=== PATIENT | female | born 1930 | race Caucasian/White ===

== ENCOUNTER 2016-06-27 08:11 | Emergency (ER) | payer MEDICARE, BC, OTHER ==
[2016-06-27] MEDS ORDERED: OPTIRAY 350 100 ML VIAL HMH IV ONE (08:12)
== END 2016-06-27 12:15 | disposition home or self-care (01) ==
LOC: ER 08:11
DX: R10.31 Right lower quadrant pain (principal)
CPT/HCPCS: 36415; 74177; 80053; 81003; 85025; 99284; Q9967

== ENCOUNTER 2016-07-04 01:06 | Inpatient (IN) | payer MEDICARE, BC, OTHER ==
[~2016-07-04] VITALS: Ht 162.6 cm; Wt 52.0 kg
[2016-07-04] VITALS (33 sets, daily range): BP systolic 70–127; RESP 14–42; TEMP 96–100.7; Ht 162.6 cm; Wt 52.0 kg
[2016-07-04] MEDS ORDERED: DUONEB INH ONE ×3 (01:12→01:39)
[2016-07-04] MEDS ORDERED: ACETAMINOPHEN 650 MG SUPP RECTAL ONE (01:27)
[2016-07-04] MEDS ORDERED: SODIUM CHLORIDE 0.9% 100 ML IV ONE (02:08)
[2016-07-04] MEDS ORDERED: CEFTRIAXONE 1 GM VIAL ONE (02:08)
[2016-07-04] MEDS ORDERED: AZITHROMYCIN 500 MG VIAL IV ONE (02:08)
[2016-07-04] MEDS ORDERED: SODIUM CHLORIDE 0.9% 250 ML IV ONE (02:08)
[2016-07-04] MEDS ORDERED: GLUCAGON 1 MG VIAL IM PRN (03:10)
[2016-07-04] MEDS ORDERED: DEXTROSE 50% SYRINGE 50 ML IV PRN (03:10)
[2016-07-04] MEDS ORDERED: MAGNESIUM SULF 1 GM/100 ML 100 ML IV ONE (06:30)
[2016-07-04] MEDS ORDERED: DUONEB INH SCH (07:00)
[2016-07-04] MEDS: NEB-ALBUTEROL 2.5 MG/3 ML INH SCH ×5 (07:02→22:23)
[2016-07-04] MEDS: NEB-BROVANA 15 MCG/2 ML INH SCH ×2 (07:02→18:28)
[2016-07-04] MEDS: ALPRAZOLAM 0.25 MG TAB PO SCH ×3 (08:37→21:53)
[2016-07-04] MEDS: METHYLPRED SOD SUCC 125 MG/2 ML VIAL IV SCH (08:37)
[2016-07-04] MEDS: FAMOTIDINE 20 MG TAB PO SCH ×2 (08:37→21:53)
[2016-07-04] MEDS ORDERED: MISSING DOSE XX ONE (17:20)
[2016-07-04] MEDS ORDERED: NITROGLYCERIN SL 0.4 MG TAB SL SCH (17:40)
[2016-07-04] MEDS ORDERED: SENNA 8.6 MG TAB PO PRN (17:40)
[2016-07-04] MEDS: LEVEMIR INSULIN SUBQ SCH (18:28)
[2016-07-04] MEDS: ASPIRIN EC 325 MG TAB PO SCH (18:28)
[2016-07-04] MEDS: SPIRONOLACTONE 25 MG TAB PO SCH (18:28)
[2016-07-04] MEDS: MONTELUKAST 10 MG TAB PO SCH (18:28)
[2016-07-04] MEDS: Ascorbic Acid 500 MG TAB PO SCH (18:29)
[2016-07-04] MEDS: PRENATAL VITAMIN TAB PO SCH (18:29)
[2016-07-04] MEDS ORDERED: SODIUM CHLORIDE 0.9% 1,000 ML IV SCH ×2 (19:20→20:05)
[2016-07-04] MEDS: FERROUS SULF 325 MG TAB PO SCH (21:53)
[2016-07-04] MEDS: Atorvastatin 20 MG TAB PO SCH (21:53)
[2016-07-04] MEDS: FLUOXETINE 20 MG CAP PO SCH (21:53)
[2016-07-04] MEDS: ATENOLOL 25 MG TAB PO SCH (21:53)
[2016-07-05] VITALS (26 sets, daily range): BP systolic 105–158; RESP 18–41; TEMP 97.2–98.1
[2016-07-05] MEDS: METHYLPRED SOD SUCC 125 MG/2 ML VIAL IV SCH ×5 (02:13→23:59)
[2016-07-05] MEDS: NEB-ALBUTEROL 2.5 MG/3 ML INH SCH ×6 (02:33→23:07)
[2016-07-05] MEDS: SODIUM CHLORIDE 0.9% 1,000 ML IV SCH ×2 (05:04→17:03)
[2016-07-05] MEDS: NEB-BROVANA 15 MCG/2 ML INH SCH ×2 (06:50→18:56)
[2016-07-05] MEDS: SPIRONOLACTONE 25 MG TAB PO SCH (08:35)
[2016-07-05] MEDS: ASPIRIN EC 325 MG TAB PO SCH (08:35)
[2016-07-05] MEDS: PANTOPRAZOLE 40 MG TAB PO SCH (08:35)
[2016-07-05] MEDS: FAMOTIDINE 20 MG TAB PO SCH ×2 (08:35→21:03)
[2016-07-05] MEDS: Furosemide 40 MG TAB PO SCH ×2 (08:35→16:00)
[2016-07-05] MEDS: FERROUS SULF 325 MG TAB PO SCH ×2 (08:35→21:04)
[2016-07-05] MEDS: MONTELUKAST 10 MG TAB PO SCH (08:36)
[2016-07-05] MEDS: ATENOLOL 25 MG TAB PO SCH ×2 (08:36→21:04)
[2016-07-05] MEDS: PRENATAL VITAMIN TAB PO SCH (08:36)
[2016-07-05] MEDS: FLUOXETINE 20 MG CAP PO SCH ×2 (08:36→21:04)
[2016-07-05] MEDS: Ascorbic Acid 500 MG TAB PO SCH (08:36)
[2016-07-05] MEDS: CEFTRIAXONE 1 GM in SODIUM CHLORIDE 0.9% 50 ML IV SCH (08:41)
[2016-07-05] MEDS: LEVEMIR INSULIN SUBQ SCH (08:43)
[2016-07-05] MEDS: ALPRAZOLAM 0.25 MG TAB PO SCH ×3 (08:48→21:04)
[2016-07-05] MEDS: AZITHROMYCIN 500 MG in SODIUM CHLORIDE 0.9% 250 ML IV SCH (09:53)
[2016-07-05] MEDS: Atorvastatin 20 MG TAB PO SCH (21:03)
[2016-07-05] MEDS: ZOLPIDEM 5 MG TAB PO SCH (21:04)
[2016-07-05] MEDS: ACETAMINOPHEN 325 MG TAB PO PRN (23:09)
[2016-07-06] VITALS (45 sets, daily range): BP systolic 114–163; RESP 17–30; TEMP 97.6–98
[2016-07-06] MEDS: PANTOPRAZOLE 40 MG TAB PO SCH (06:25)
[2016-07-06] MEDS: NEB-ALBUTEROL 2.5 MG/3 ML INH SCH ×4 (06:33→23:33)
[2016-07-06] MEDS: NEB-BROVANA 15 MCG/2 ML INH SCH ×2 (06:33→19:30)
[2016-07-06] MEDS: METHYLPRED SOD SUCC 125 MG/2 ML VIAL IV SCH ×3 (07:53→23:30)
[2016-07-06] MEDS: CEFTRIAXONE 1 GM in SODIUM CHLORIDE 0.9% 50 ML IV SCH (07:53)
[2016-07-06] MEDS: FLUOXETINE 20 MG CAP PO SCH ×2 (08:06→20:47)
[2016-07-06] MEDS: FAMOTIDINE 20 MG TAB PO SCH ×2 (08:06→20:47)
[2016-07-06] MEDS: MONTELUKAST 10 MG TAB PO SCH (08:06)
[2016-07-06] MEDS: ALPRAZOLAM 0.25 MG TAB PO SCH ×3 (08:07→20:48)
[2016-07-06] MEDS: ATENOLOL 25 MG TAB PO SCH ×2 (08:07→20:47)
[2016-07-06] MEDS: ASPIRIN EC 325 MG TAB PO SCH (08:07)
[2016-07-06] MEDS: Ascorbic Acid 500 MG TAB PO SCH (08:07)
[2016-07-06] MEDS: SPIRONOLACTONE 25 MG TAB PO SCH (08:08)
[2016-07-06] MEDS: Furosemide 40 MG TAB PO SCH ×2 (08:08→17:13)
[2016-07-06] MEDS: NITROFURANTOIN 50 MG CAP PO SCH (08:08)
[2016-07-06] MEDS: PRENATAL VITAMIN TAB PO SCH (08:08)
[2016-07-06] MEDS: FERROUS SULF 325 MG TAB PO SCH ×2 (08:10→20:48)
[2016-07-06] MEDS: LEVEMIR INSULIN SUBQ SCH (08:17)
[2016-07-06] MEDS: AZITHROMYCIN 500 MG in SODIUM CHLORIDE 0.9% 250 ML IV SCH (08:50)
[2016-07-06] MEDS ORDERED: PHARMACY TO DOSE TOBRAMYCIN IV SCH (13:35)
[2016-07-06] MEDS ORDERED: PHARMACY TO DOSE ZOSYN IV SCH (13:35)
[2016-07-06] MEDS ORDERED: TOBRAMYCIN IV ONE (15:00)
[2016-07-06] MEDS ORDERED: SODIUM CHLORIDE 0.9% IV ONE (15:00)
[2016-07-06] MEDS: PIPERACIL/TAZO 3.375GM/50ML 50 ML IV SCH ×2 (17:18→23:30)
[2016-07-06] MEDS: Atorvastatin 20 MG TAB PO SCH (20:47)
[2016-07-06] MEDS: ZOLPIDEM 5 MG TAB PO SCH (20:48)
[2016-07-07] VITALS (18 sets, daily range): BP systolic 123–155; RESP 14–27; TEMP 96–98.6
[2016-07-07] MEDS: PIPERACIL/TAZO 3.375GM/50ML 50 ML IV SCH ×4 (05:50→23:18)
[2016-07-07] MEDS: NEB-BROVANA 15 MCG/2 ML INH SCH ×2 (06:31→19:53)
[2016-07-07] MEDS: NEB-ALBUTEROL 2.5 MG/3 ML INH SCH ×5 (06:31→23:04)
[2016-07-07] MEDS ORDERED: ZOLPIDEM 5 MG TAB PO SCH (06:35)
[2016-07-07] MEDS: PANTOPRAZOLE 40 MG TAB PO SCH (06:35)
[2016-07-07] MEDS: FLUOXETINE 20 MG CAP PO SCH ×2 (08:13→21:28)
[2016-07-07] MEDS: METHYLPRED SOD SUCC 125 MG/2 ML VIAL IV SCH ×3 (08:13→23:17)
[2016-07-07] MEDS: Ascorbic Acid 500 MG TAB PO SCH (08:14)
[2016-07-07] MEDS: PRENATAL VITAMIN TAB PO SCH (08:14)
[2016-07-07] MEDS: FAMOTIDINE 20 MG TAB PO SCH ×2 (08:14→21:29)
[2016-07-07] MEDS: MONTELUKAST 10 MG TAB PO SCH (08:14)
[2016-07-07] MEDS: ASPIRIN EC 325 MG TAB PO SCH (08:14)
[2016-07-07] MEDS: Furosemide 40 MG TAB PO SCH ×2 (08:14→16:04)
[2016-07-07] MEDS: FERROUS SULF 325 MG TAB PO SCH ×2 (08:14→21:28)
[2016-07-07] MEDS: SPIRONOLACTONE 25 MG TAB PO SCH (08:14)
[2016-07-07] MEDS: ATENOLOL 25 MG TAB PO SCH ×2 (08:14→21:28)
[2016-07-07] MEDS: ALPRAZOLAM 0.25 MG TAB PO SCH ×3 (08:22→21:28)
[2016-07-07] MEDS: LEVEMIR INSULIN SUBQ SCH (08:23)
[2016-07-07] MEDS: DICLOFENAC 1% GEL 100 GM TOPICAL SCH ×3 (12:04→21:29)
[2016-07-07] MEDS ORDERED: MISSING DOSE XX ONE (16:40)
[2016-07-07] MEDS: Atorvastatin 20 MG TAB PO SCH (21:28)
[2016-07-07] MEDS: ZOLPIDEM 5 MG TAB PO SCH (21:29)
[2016-07-08] MEDS ORDERED: TOBRAMYCIN IV SCH (03:00)
[2016-07-08] MEDS ORDERED: SODIUM CHLORIDE 0.9% IV SCH (03:00)
[2016-07-08] MEDS: PIPERACIL/TAZO 3.375GM/50ML 50 ML IV SCH ×3 (06:15→18:03)
[2016-07-08] MEDS: PANTOPRAZOLE 40 MG TAB PO SCH (06:16)
[2016-07-08] MEDS: NEB-BROVANA 15 MCG/2 ML INH SCH ×2 (07:35→19:01)
[2016-07-08] MEDS: NEB-ALBUTEROL 2.5 MG/3 ML INH SCH ×5 (07:35→23:27)
[2016-07-08 08:37] VITALS: BP_SYST 157; RESP 18; TEMP 98.1
[2016-07-08] MEDS: MONTELUKAST 10 MG TAB PO SCH (09:59)
[2016-07-08] MEDS: ATENOLOL 25 MG TAB PO SCH ×2 (09:59→20:30)
[2016-07-08] MEDS: SPIRONOLACTONE 25 MG TAB PO SCH (09:59)
[2016-07-08] MEDS: ASPIRIN EC 325 MG TAB PO SCH (09:59)
[2016-07-08] MEDS: NITROFURANTOIN 50 MG CAP PO SCH (09:59)
[2016-07-08] MEDS: Ascorbic Acid 500 MG TAB PO SCH (10:00)
[2016-07-08] MEDS: FERROUS SULF 325 MG TAB PO SCH ×2 (10:00→20:30)
[2016-07-08] MEDS: FLUOXETINE 20 MG CAP PO SCH ×2 (10:00→20:29)
[2016-07-08] MEDS: PRENATAL VITAMIN TAB PO SCH (10:00)
[2016-07-08] MEDS: FAMOTIDINE 20 MG TAB PO SCH ×2 (10:00→20:29)
[2016-07-08] MEDS: ALPRAZOLAM 0.25 MG TAB PO SCH ×3 (10:00→20:29)
[2016-07-08] MEDS: LEVEMIR INSULIN SUBQ SCH (10:01)
[2016-07-08] MEDS: Furosemide 40 MG TAB PO SCH ×2 (10:01→17:56)
[2016-07-08] MEDS: METHYLPRED SOD SUCC 125 MG/2 ML VIAL IV SCH ×2 (10:02→17:53)
[2016-07-08] MEDS ORDERED: MISSING DOSE XX ONE (11:30)
[2016-07-08 11:41] VITALS: BP_SYST 155; RESP 18; TEMP 98.5
[2016-07-08] MEDS: DICLOFENAC 1% GEL 100 GM TOPICAL SCH ×3 (12:27→20:30)
[2016-07-08 15:33] VITALS: BP_SYST 134; RESP 20; TEMP 97.6
[2016-07-08] MEDS: SODIUM CHLORIDE 0.9% 1,000 ML IV SCH (15:33)
[2016-07-08 19:16] VITALS: BP_SYST 124; TEMP 98.2
[2016-07-08] MEDS: Atorvastatin 20 MG TAB PO SCH (20:29)
[2016-07-08] MEDS: ZOLPIDEM 5 MG TAB PO SCH (20:30)
[2016-07-08 23:33] VITALS: BP_SYST 152; RESP 18; TEMP 98.1
[2016-07-09] MEDS: PIPERACIL/TAZO 3.375GM/50ML 50 ML IV SCH ×5 (00:01→23:16)
[2016-07-09] MEDS: METHYLPRED SOD SUCC 125 MG/2 ML VIAL IV SCH ×4 (00:01→23:17)
[2016-07-09 05:48] VITALS: BP_SYST 149; RESP 18; TEMP 98.2
[2016-07-09] MEDS: PANTOPRAZOLE 40 MG TAB PO SCH (05:48)
[2016-07-09] MEDS: SODIUM CHLORIDE 0.9% 1,000 ML IV SCH (06:08)
[2016-07-09] MEDS ORDERED: KCL CR 20 MEQ TAB PO ONE (06:35)
[2016-07-09] MEDS: NEB-BROVANA 15 MCG/2 ML INH SCH ×2 (06:48→19:37)
[2016-07-09] MEDS: NEB-ALBUTEROL 2.5 MG/3 ML INH SCH ×5 (06:48→23:14)
[2016-07-09 07:42] VITALS: BP_SYST 142; RESP 18; TEMP 98.2
[2016-07-09] MEDS: LEVEMIR INSULIN SUBQ SCH (08:57)
[2016-07-09] MEDS: ALPRAZOLAM 0.25 MG TAB PO SCH ×3 (09:00→20:02)
[2016-07-09] MEDS: ATENOLOL 25 MG TAB PO SCH ×2 (09:47→20:02)
[2016-07-09] MEDS: ASPIRIN EC 325 MG TAB PO SCH (09:47)
[2016-07-09] MEDS: MONTELUKAST 10 MG TAB PO SCH (09:49)
[2016-07-09] MEDS: Ascorbic Acid 500 MG TAB PO SCH (09:49)
[2016-07-09] MEDS: PRENATAL VITAMIN TAB PO SCH (09:49)
[2016-07-09] MEDS: FLUOXETINE 20 MG CAP PO SCH ×2 (09:49→20:02)
[2016-07-09] MEDS: Furosemide 40 MG TAB PO SCH ×2 (09:49→17:27)
[2016-07-09] MEDS: SPIRONOLACTONE 25 MG TAB PO SCH (09:49)
[2016-07-09] MEDS: FAMOTIDINE 20 MG TAB PO SCH ×2 (09:50→20:01)
[2016-07-09] MEDS: DICLOFENAC 1% GEL 100 GM TOPICAL SCH ×3 (09:50→20:02)
[2016-07-09] MEDS: FERROUS SULF 325 MG TAB PO SCH ×2 (09:50→20:02)
[2016-07-09 11:49] VITALS: BP_SYST 124; RESP 18; TEMP 98
[2016-07-09 15:33] VITALS: BP_SYST 107; RESP 18; TEMP 97.7
[2016-07-09] MEDS ORDERED: TOBRAMYCIN IV ONE (15:35)
[2016-07-09] MEDS ORDERED: SODIUM CHLORIDE 0.9% IV ONE (15:35)
[2016-07-09 19:05] VITALS: BP_SYST 117; RESP 18; TEMP 98
[2016-07-09] MEDS: ZOLPIDEM 5 MG TAB PO SCH (20:01)
[2016-07-09] MEDS: Atorvastatin 20 MG TAB PO SCH (20:01)
[2016-07-09 23:07] VITALS: BP_SYST 140; RESP 18; TEMP 98.1
[2016-07-10 04:16] VITALS: BP_SYST 121; RESP 16; TEMP 98.5
[2016-07-10] MEDS: PANTOPRAZOLE 40 MG TAB PO SCH (05:14)
[2016-07-10] MEDS: SODIUM CHLORIDE 0.9% 1,000 ML IV SCH (05:14)
[2016-07-10] MEDS: PIPERACIL/TAZO 3.375GM/50ML 50 ML IV SCH ×4 (05:14→23:44)
[2016-07-10 07:18] VITALS: BP_SYST 149; RESP 18; TEMP 97.7
[2016-07-10] MEDS ORDERED: MISSING DOSE XX ONE ×2 (07:45→08:10)
[2016-07-10] MEDS: NEB-BROVANA 15 MCG/2 ML INH SCH ×2 (07:52→19:00)
[2016-07-10] MEDS: NEB-ALBUTEROL 2.5 MG/3 ML INH SCH ×5 (07:52→22:55)
[2016-07-10] MEDS ORDERED: TOBRAMYCIN IV SCH (08:00)
[2016-07-10] MEDS ORDERED: SODIUM CHLORIDE 0.9% IV SCH (08:00)
[2016-07-10] MEDS: PRENATAL VITAMIN TAB PO SCH (08:49)
[2016-07-10] MEDS: Furosemide 40 MG TAB PO SCH ×2 (08:50→16:15)
[2016-07-10] MEDS: MONTELUKAST 10 MG TAB PO SCH (08:50)
[2016-07-10] MEDS: ATENOLOL 25 MG TAB PO SCH ×2 (08:50→21:18)
[2016-07-10] MEDS: FAMOTIDINE 20 MG TAB PO SCH ×2 (08:50→21:19)
[2016-07-10] MEDS: Ascorbic Acid 500 MG TAB PO SCH (08:50)
[2016-07-10] MEDS: FLUOXETINE 20 MG CAP PO SCH ×2 (08:51→21:19)
[2016-07-10] MEDS: SPIRONOLACTONE 25 MG TAB PO SCH (08:51)
[2016-07-10] MEDS: NITROFURANTOIN 50 MG CAP PO SCH (08:51)
[2016-07-10] MEDS: ASPIRIN EC 325 MG TAB PO SCH (08:51)
[2016-07-10] MEDS: FERROUS SULF 325 MG TAB PO SCH ×2 (08:51→21:18)
[2016-07-10] MEDS: LEVEMIR INSULIN SUBQ SCH (08:52)
[2016-07-10] MEDS: DICLOFENAC 1% GEL 100 GM TOPICAL SCH ×4 (09:00→21:00)
[2016-07-10] MEDS: ALPRAZOLAM 0.25 MG TAB PO SCH ×3 (09:40→21:00)
[2016-07-10] MEDS: METHYLPRED SOD SUCC 40 MG VIAL IV SCH ×3 (09:41→23:44)
[2016-07-10 11:07] VITALS: BP_SYST 143; RESP 20; TEMP 97.8
[2016-07-10 15:42] VITALS: BP_SYST 125; RESP 18; TEMP 97.9
[2016-07-10 19:26] VITALS: BP_SYST 136; RESP 18
[2016-07-10] MEDS: TEMAZEPAM 7.5 MG CAP PO SCH (21:00)
[2016-07-10] MEDS: Atorvastatin 20 MG TAB PO SCH (21:19)
[2016-07-11 04:27] VITALS: BP_SYST 153; RESP 18; TEMP 98
[2016-07-11] MEDS: PANTOPRAZOLE 40 MG TAB PO SCH (05:53)
[2016-07-11] MEDS: PIPERACIL/TAZO 3.375GM/50ML 50 ML IV SCH (05:54)
[2016-07-11] MEDS: NEB-BROVANA 15 MCG/2 ML INH SCH ×2 (06:58→18:32)
[2016-07-11] MEDS: NEB-ALBUTEROL 2.5 MG/3 ML INH SCH ×5 (06:58→22:26)
[2016-07-11 07:53] VITALS: BP_SYST 144; RESP 20; TEMP 97.8
[2016-07-11] MEDS: FAMOTIDINE 20 MG TAB PO SCH ×2 (09:11→21:25)
[2016-07-11] MEDS: METHYLPRED SOD SUCC 40 MG VIAL IV SCH ×2 (09:11→16:06)
[2016-07-11] MEDS: LEVEMIR INSULIN SUBQ SCH (09:11)
[2016-07-11] MEDS: FLUOXETINE 20 MG CAP PO SCH ×2 (09:12→21:24)
[2016-07-11] MEDS: ALPRAZOLAM 0.25 MG TAB PO SCH ×3 (09:12→21:24)
[2016-07-11] MEDS: SPIRONOLACTONE 25 MG TAB PO SCH (09:12)
[2016-07-11] MEDS: ATENOLOL 25 MG TAB PO SCH ×2 (09:12→21:25)
[2016-07-11] MEDS: Ascorbic Acid 500 MG TAB PO SCH (09:12)
[2016-07-11] MEDS: Furosemide 40 MG TAB PO SCH ×2 (09:12→16:06)
[2016-07-11] MEDS: MONTELUKAST 10 MG TAB PO SCH (09:12)
[2016-07-11] MEDS: FERROUS SULF 325 MG TAB PO SCH ×2 (09:12→21:25)
[2016-07-11] MEDS: PRENATAL VITAMIN TAB PO SCH (09:12)
[2016-07-11] MEDS: ASPIRIN EC 325 MG TAB PO SCH (09:12)
[2016-07-11] MEDS: DICLOFENAC 1% GEL 100 GM TOPICAL SCH ×3 (09:13→21:26)
[2016-07-11] MEDS ORDERED: MISSING DOSE XX ONE ×2 (12:30→21:00)
[2016-07-11] MEDS: PIPERACIL/TAZO 2.25GM/50ML 50 ML IV SCH ×2 (13:36→18:22)
[2016-07-11 14:57] VITALS: BP_SYST 152; RESP 20; TEMP 97.7
[2016-07-11 19:15] VITALS: BP_SYST 150; RESP 18; TEMP 97.4
[2016-07-11] MEDS: Atorvastatin 20 MG TAB PO SCH (21:24)
[2016-07-11] MEDS: TEMAZEPAM 7.5 MG CAP PO SCH (21:25)
[2016-07-12] MEDS: SODIUM CHLORIDE 0.9% 1,000 ML IV SCH (00:07)
[2016-07-12] MEDS: METHYLPRED SOD SUCC 40 MG VIAL IV SCH ×4 (00:08→23:39)
[2016-07-12] MEDS: PIPERACIL/TAZO 2.25GM/50ML 50 ML IV SCH ×5 (00:08→23:39)
[2016-07-12 02:57] VITALS: BP_SYST 137; RESP 18; TEMP 98.4
[2016-07-12] MEDS: PANTOPRAZOLE 40 MG TAB PO SCH (06:08)
[2016-07-12 07:14] VITALS: BP_SYST 138; RESP 20; TEMP 98.1
[2016-07-12] MEDS: NEB-ALBUTEROL 2.5 MG/3 ML INH SCH ×5 (07:17→23:15)
[2016-07-12] MEDS: NEB-BROVANA 15 MCG/2 ML INH SCH ×2 (07:17→18:49)
[2016-07-12] MEDS: LEVEMIR INSULIN SUBQ SCH (08:49)
[2016-07-12] MEDS: DICLOFENAC 1% GEL 100 GM TOPICAL SCH ×3 (08:50→20:16)
[2016-07-12] MEDS: FLUOXETINE 20 MG CAP PO SCH ×2 (08:51→20:15)
[2016-07-12] MEDS: SPIRONOLACTONE 25 MG TAB PO SCH (08:51)
[2016-07-12] MEDS: ALPRAZOLAM 0.25 MG TAB PO SCH ×3 (08:51→20:15)
[2016-07-12] MEDS: Furosemide 40 MG TAB PO SCH ×2 (08:52→17:00)
[2016-07-12] MEDS: ATENOLOL 25 MG TAB PO SCH ×2 (08:52→20:15)
[2016-07-12] MEDS: ASPIRIN EC 325 MG TAB PO SCH (08:52)
[2016-07-12] MEDS: PRENATAL VITAMIN TAB PO SCH (08:52)
[2016-07-12] MEDS: MONTELUKAST 10 MG TAB PO SCH (08:52)
[2016-07-12] MEDS: FAMOTIDINE 20 MG TAB PO SCH ×2 (08:52→20:15)
[2016-07-12] MEDS: NITROFURANTOIN 50 MG CAP PO SCH (08:52)
[2016-07-12] MEDS: Ascorbic Acid 500 MG TAB PO SCH (08:53)
[2016-07-12] MEDS: FERROUS SULF 325 MG TAB PO SCH ×2 (08:53→20:15)
[2016-07-12] MEDS: ACETAMINOPHEN 325 MG TAB PO PRN (09:53)
[2016-07-12 11:39] VITALS: BP_SYST 120; RESP 20; TEMP 97.8
[2016-07-12 15:41] VITALS: BP_SYST 126; RESP 20; TEMP 98.2
[2016-07-12 19:39] VITALS: BP_SYST 116; RESP 18; TEMP 97.9
[2016-07-12] MEDS: TEMAZEPAM 7.5 MG CAP PO SCH (20:15)
[2016-07-12] MEDS: Atorvastatin 20 MG TAB PO SCH (20:15)
[2016-07-12 23:39] VITALS: BP_SYST 126; RESP 20; TEMP 97.8
[2016-07-13 02:53] VITALS: BP_SYST 129; RESP 20; TEMP 98
[2016-07-13] MEDS: PIPERACIL/TAZO 2.25GM/50ML 50 ML IV SCH ×2 (05:41→11:39)
[2016-07-13] MEDS: PANTOPRAZOLE 40 MG TAB PO SCH (05:41)
[2016-07-13] MEDS: SODIUM CHLORIDE 0.9% 1,000 ML IV SCH (07:30)
[2016-07-13] MEDS: NEB-BROVANA 15 MCG/2 ML INH SCH ×2 (07:34→19:03)
[2016-07-13] MEDS: NEB-ALBUTEROL 2.5 MG/3 ML INH SCH ×5 (07:34→23:10)
[2016-07-13 07:45] VITALS: BP_SYST 102; RESP 18; TEMP 97.9
[2016-07-13] MEDS: DICLOFENAC 1% GEL 100 GM TOPICAL SCH ×3 (08:42→22:42)
[2016-07-13] MEDS: FERROUS SULF 325 MG TAB PO SCH ×2 (08:43→22:43)
[2016-07-13] MEDS: ASPIRIN EC 325 MG TAB PO SCH (08:43)
[2016-07-13] MEDS: Ascorbic Acid 500 MG TAB PO SCH (08:43)
[2016-07-13] MEDS: PRENATAL VITAMIN TAB PO SCH (08:44)
[2016-07-13] MEDS: FAMOTIDINE 20 MG TAB PO SCH ×2 (08:44→22:43)
[2016-07-13] MEDS: Furosemide 40 MG TAB PO SCH ×2 (08:44→16:19)
[2016-07-13] MEDS: MONTELUKAST 10 MG TAB PO SCH (08:44)
[2016-07-13] MEDS: SPIRONOLACTONE 25 MG TAB PO SCH (08:44)
[2016-07-13] MEDS: FLUOXETINE 20 MG CAP PO SCH ×2 (08:44→22:43)
[2016-07-13] MEDS: ATENOLOL 25 MG TAB PO SCH ×2 (08:44→22:44)
[2016-07-13] MEDS: METHYLPRED SOD SUCC 40 MG VIAL IV SCH ×3 (08:45→23:56)
[2016-07-13] MEDS: LEVEMIR INSULIN SUBQ SCH (08:46)
[2016-07-13] MEDS: ALPRAZOLAM 0.25 MG TAB PO SCH ×3 (08:47→22:48)
[2016-07-13] MEDS: GABAPENTIN 100 MG CAP PO SCH ×3 (10:21→22:43)
[2016-07-13] MEDS: NYSTATIN 500,000 UNITS/5 ML SUSP SWISH.SWAL SCH ×4 (10:22→22:41)
[2016-07-13 12:17] VITALS: BP_SYST 125; RESP 20; TEMP 98.2
[2016-07-13 14:50] VITALS: BP_SYST 113; RESP 18; TEMP 98
[2016-07-13 19:50] VITALS: BP_SYST 118; RESP 18; TEMP 97.2
[2016-07-13] MEDS: Atorvastatin 20 MG TAB PO SCH (22:43)
[2016-07-13] MEDS: TEMAZEPAM 7.5 MG CAP PO SCH (22:44)
[2016-07-14] VITALS (7 sets, daily range): BP systolic 114–132; RESP 16–20; TEMP 97.6–98.3
[2016-07-14] MEDS: PANTOPRAZOLE 40 MG TAB PO SCH (06:21)
[2016-07-14] MEDS: SODIUM CHLORIDE 0.9% 1,000 ML IV SCH (06:22)
[2016-07-14] MEDS: NEB-BROVANA 15 MCG/2 ML INH SCH ×2 (07:00→19:37)
[2016-07-14] MEDS: NEB-ALBUTEROL 2.5 MG/3 ML INH SCH ×5 (07:00→23:39)
[2016-07-14] MEDS: DICLOFENAC 1% GEL 100 GM TOPICAL SCH ×3 (08:45→21:38)
[2016-07-14] MEDS: NYSTATIN 500,000 UNITS/5 ML SUSP SWISH.SWAL SCH ×4 (08:45→21:15)
[2016-07-14] MEDS: ALPRAZOLAM 0.25 MG TAB PO SCH ×3 (08:46→21:16)
[2016-07-14] MEDS: LEVEMIR INSULIN SUBQ SCH (08:46)
[2016-07-14] MEDS: MONTELUKAST 10 MG TAB PO SCH (08:47)
[2016-07-14] MEDS: ATENOLOL 25 MG TAB PO SCH ×2 (08:47→21:15)
[2016-07-14] MEDS: PRENATAL VITAMIN TAB PO SCH (08:47)
[2016-07-14] MEDS: ASPIRIN EC 325 MG TAB PO SCH (08:47)
[2016-07-14] MEDS: FAMOTIDINE 20 MG TAB PO SCH ×2 (08:47→21:15)
[2016-07-14] MEDS: FERROUS SULF 325 MG TAB PO SCH ×2 (08:47→21:15)
[2016-07-14] MEDS: GABAPENTIN 100 MG CAP PO SCH ×3 (08:47→21:15)
[2016-07-14] MEDS: Furosemide 40 MG TAB PO SCH ×2 (08:47→16:50)
[2016-07-14] MEDS: Ascorbic Acid 500 MG TAB PO SCH (08:47)
[2016-07-14] MEDS: SPIRONOLACTONE 25 MG TAB PO SCH (08:48)
[2016-07-14] MEDS: FLUOXETINE 20 MG CAP PO SCH ×2 (08:48→21:15)
[2016-07-14] MEDS: Atorvastatin 20 MG TAB PO SCH (21:15)
[2016-07-14] MEDS: TEMAZEPAM 7.5 MG CAP PO SCH (21:15)
[2016-07-15 03:27] VITALS: BP_SYST 123; RESP 20; TEMP 98.2
[2016-07-15] MEDS: PANTOPRAZOLE 40 MG TAB PO SCH (05:49)
[2016-07-15] MEDS: NEB-BROVANA 15 MCG/2 ML INH SCH (06:33)
[2016-07-15] MEDS: NEB-ALBUTEROL 2.5 MG/3 ML INH SCH ×2 (06:33→11:31)
[2016-07-15 08:06] VITALS: BP_SYST 116; RESP 20; TEMP 97.7
[2016-07-15] MEDS: LEVEMIR INSULIN SUBQ SCH (08:42)
[2016-07-15] MEDS: ALPRAZOLAM 0.25 MG TAB PO SCH (08:43)
[2016-07-15] MEDS: SPIRONOLACTONE 25 MG TAB PO SCH (08:43)
[2016-07-15] MEDS: ASPIRIN EC 325 MG TAB PO SCH (08:43)
[2016-07-15] MEDS: Furosemide 40 MG TAB PO SCH (08:43)
[2016-07-15] MEDS: GABAPENTIN 100 MG CAP PO SCH (08:44)
[2016-07-15] MEDS: PRENATAL VITAMIN TAB PO SCH (08:44)
[2016-07-15] MEDS: FLUOXETINE 20 MG CAP PO SCH (08:44)
[2016-07-15] MEDS: MONTELUKAST 10 MG TAB PO SCH (08:44)
[2016-07-15] MEDS: FERROUS SULF 325 MG TAB PO SCH (08:44)
[2016-07-15] MEDS: FAMOTIDINE 20 MG TAB PO SCH (08:44)
[2016-07-15] MEDS: Ascorbic Acid 500 MG TAB PO SCH (08:44)
[2016-07-15] MEDS: ATENOLOL 25 MG TAB PO SCH (08:44)
[2016-07-15] MEDS: NYSTATIN 500,000 UNITS/5 ML SUSP SWISH.SWAL SCH (08:45)
[2016-07-15 11:16] VITALS: BP_SYST 158; RESP 20; TEMP 97.9
[2016-07-15 12:38] VITALS: BP_SYST 158; RESP 20; TEMP 97.9
[2016-07-15 12:42] VITALS: BP_SYST 158; RESP 20; TEMP 97.9
[2016-07-15 12:50] VITALS: BP_SYST 158; RESP 20; TEMP 97.9
== END 2016-07-15 13:49 | disposition home or self-care (01) | DRG 871 ==
LOC: ENRESERVDT → ENRESERVTM → ER 01:06 → EMR 02:51 → ENPENDDIS 02:51 → CCU 04:08 → 4THW 07-07 12:46 → 4NT 07-08 02:45
PROVIDERS: ADMIT Internal Medicine; ATTEND Internal Medicine
DX: A41.9 Sepsis, unspecified organism (principal); J15.1 Pneumonia due to Pseudomonas; J96.01 Acute respiratory failure with hypoxia; I11.0 Hypertensive heart disease with heart failure; J44.0 Chronic obstructive pulmonary disease with (acute) lower respiratory infection; I50.32 Chronic diastolic (congestive) heart failure; E11.40 Type 2 diabetes mellitus with diabetic neuropathy, unspecified; J44.1 Chronic obstructive pulmonary disease with (acute) exacerbation; N39.0 Urinary tract infection, site not specified; I25.10 Atherosclerotic heart disease of native coronary artery without angina pectoris; Z95.1 Presence of aortocoronary bypass graft; E11.51 Type 2 diabetes mellitus with diabetic peripheral angiopathy without gangrene; E11.65 Type 2 diabetes mellitus with hyperglycemia; Z85.3 Personal history of malignant neoplasm of breast; Z79.82 Long term (current) use of aspirin; Z79.4 Long term (current) use of insulin; F41.9 Anxiety disorder, unspecified; E78.00 Pure hypercholesterolemia, unspecified; Z87.891 Personal history of nicotine dependence; E87.6 Hypokalemia; K21.9 Gastro-esophageal reflux disease without esophagitis; G47.00 Insomnia, unspecified; Z90.13 Acquired absence of bilateral breasts and nipples; R65.20 Severe sepsis without septic shock
CPT/HCPCS: 36415; 36600; 71010; 71020; 80047; 80048; 80053; 80200; 81001; 82550; 82553; 82803; 82947; 83605; 83880; 84484; 85007; 85014; 85025; 85027; 85610; 85730; 86738; 87040; 87071; 87077; 87088; 87186; 87205; 87804; 93005; 93306; 94640; 94660; 94799; 96365; 96366